=== PATIENT | male | born 1990 | race Caucasian/White ===

== ENCOUNTER 2025-01-22 16:04 | Emergency (ER) | payer MEDICAID ==
[~2025-01-22] VITALS: Ht 177.8 cm; Wt 90.0 kg
[~2025-01-22 16:04] MED LIST: DILANTIN; KEPP500; KEPPRA; PHEN100C4; PROP20TA7; PROP80TA4
[2025-01-22 16:13] VITALS: TEMP 37.2; O2SAT 97
[2025-01-22] MEDS: KETOROLAC 30MG/ML VIAL IM ONE (20:48)
[2025-01-22] MEDS ORDERED: METH4TAB95 MT (22:06)
[2025-01-22] MEDS ORDERED: LIDO-53 TP (22:06)
[2025-01-22 22:27] VITALS: BP 106/84; PULSE 61; RESP 16; O2SAT 100
== END 2025-01-22 22:32 | disposition home or self-care (01) ==
LOC: ER 16:17
DX: R07.81 Pleurodynia (principal); F12.90 Cannabis use, unspecified, uncomplicated; I10 Essential (primary) hypertension; Z79.899 Other long term (current) drug therapy; W18.30XA Fall on same level, unspecified, initial encounter; Y93.89 Activity, other specified; Y92.89 Other specified places as the place of occurrence of the external cause; Y99.8 Other external cause status
CPT/HCPCS: 71046; 72170; 96372; 99284; J1885; Z7610 ×2